=== PATIENT | female | born 1955 | race Caucasian/White ===

== ENCOUNTER 2023-08-17 20:31 | Inpatient (IN) | payer OTHER ==
[2023-08-17 21:54] VITALS: BMI 24.2
[2023-08-17] MEDS ORDERED: IBUPROFEN 400 MG TABLET (FP) PO PRN (22:18)
[2023-08-17] MEDS ORDERED: BISMUTH SUBSALICYLATE 524 MG/30 ML PO PRN (22:18)
[2023-08-17] MEDS ORDERED: LOPERAMIDE HCL 2 MG CAPSULE PO PRN (22:18)
[2023-08-17] MEDS ORDERED: NALOXONE HCL 0.4 MG/ML VIAL IM PRN (22:18)
[2023-08-17] MEDS ORDERED: MAGNESIUM HYDROX 2400MG/30ML ORAL SUSPENSION 30 ML CUP PO PRN (22:18)
[2023-08-17] MEDS ORDERED: BENZOCAINE/MENTHOL (CHLORASEPTIC ) LOZENGE MM PRN (22:18)
[2023-08-17] MEDS ORDERED: NALOXONE (NARCAN) HCL 4 MG/0.1 ML SPRAY NS PRN (22:18)
[2023-08-17] MEDS ORDERED: NICOTINE POLACRILEX 2 MG GUM BUC PRN (22:18)
[2023-08-17] MEDS ORDERED: MAG HYDROX/AL HYDROX/SIMETH 30 ML UNIT-DOSE CUP PO PRN (22:18)
[2023-08-17] MEDS ORDERED: guaiFENesin 600 MG TABLET.ER (FP) PO PRN (22:18)
[2023-08-17] MEDS ORDERED: POLYETHYLENE GLYCOL (HEALTHYLAX) 3350 17 GM PACKET PO PRN (22:18)
[2023-08-17] MEDS ORDERED: ALBUTEROL SO4 HFA INHALER IH PRN (23:46)
[2023-08-17] MEDS: amLODIPine BESYLATE 5 MG TABLET (FP) PO ONE (23:47)
[2023-08-17] MEDS: MELATONIN 5 MG TABLETS PO ONE (23:55)
[2023-08-17] MEDS: hydrOXYzine PAMOATE 25 MG CAPSULE (FP) PO PRN (23:56)
[2023-08-17] MEDS: diazePAM 5 MG TABLET PO ONE (23:56)
[2023-08-18] MEDS: ONDANSETRON *ODT* 4 MG TABLET SL PRN (04:19)
[2023-08-18] MEDS: IBUPROFEN 600 MG TABLET (FP) PO PRN (04:20)
[2023-08-18] MEDS: P-EPHED 60MG/TRIPROLIDI 2.5MG TABLET PO PRN (04:24)
[2023-08-18] MEDS: ACETAMINOPHEN 325 MG TABLET (FP) PO PRN (08:02)
[2023-08-18] MEDS: TRIMETHOBENZAMIDE HCL 200MG/2ML INJ IM ONE (08:45)
[2023-08-18] MEDS: metFORMIN HCL 500 MG TABLET (FP) PO SCH (08:45)
[2023-08-18] MEDS: methaDONE HCL 10 MG TABLET (FOR DETOX USE ONLY) PO ONE (09:03)
[2023-08-18] MEDS: BUPRENORPHINE/NALOXONE 0.5 MG/0.125 MG FILM SL ONE ×2 (09:03→22:15)
[2023-08-18] MEDS: cloNIDine HCL 0.1 MG TABLET PO SCH (09:05)
[2023-08-18] MEDS: PRENATAL VITAMINS W/ FOLIC ACID TABLET (FP) PO SCH (09:05)
[2023-08-18] MEDS: FUROSEMIDE 20 MG TABLET (FP) PO SCH (09:05)
[2023-08-18] MEDS: PANTOPRAZOLE 40 MG TABLET PO SCH (11:14)
[2023-08-18 11:17] LABS: POTASSIUM 4.2 mmol/L (3.5-5.1)
[2023-08-18 11:25] LABS: CALCIUM 9.5 mg/dL (8.5-10.1)
[2023-08-18 11:26] LABS: BLOOD UREA NITROGEN 11.6 mg/dL (7-18); HEMATOCRIT 43.2 % (32.4-45.2); HEMOGLOBIN 14.3 GM/dL (10.7-15.3); MCH 27.3 pg (25.7-33.7); MEAN CELL VOLUME 82.7 fl (80-96); MEAN PLT VOLUME 8.8 fl (7.5-11.1); PLATELET COUNT 198 10^3/uL (134-434); RBC 5.23 M/mm3 (3.60-5.2); RDW 17.7 % (11.6-15.6); WHITE BLOOD COUNT 4.5 K/mm3 (4.0-10.0)
[2023-08-18 11:29] LABS: BILIRUBIN,TOTAL 0.6 mg/dL (0.2-1); CREATININE 0.6 mg/dL (0.55-1.3); TOT PROT 7.6 g/dl (6.4-8.2)
[2023-08-18] MEDS: NICOTINE POLACRILEX 2 MG LOZENGE BC PRN (12:57)
[2023-08-18] MEDS ORDERED: QUEtiapine FUMARATE 50 MG TABLET PO SCH (22:00)
[2023-08-18] MEDS: MIRTAZAPINE 15 MG TABLET (FP) PO SCH (22:15)
[2023-08-18] MEDS: ATORVASTATIN CA 20 MG TABLET (FP) PO SCH (22:15)
[2023-08-18] MEDS: THIAMINE 100 MG TABLET PO SCH (22:15)
[2023-08-18] MEDS: MELATONIN 5 MG TABLETS PO SCH (22:15)
[2023-08-19] MEDS: BENZONATATE 200 MG CAPSULE PO PRN (03:19)
[2023-08-19] MEDS: NICOTINE POLACRILEX 2 MG GUM BC PRN (06:37)
[2023-08-19] MEDS: BUPRENORPHINE/NALOXONE 0.5 MG/0.125 MG FILM SL SCH (09:31)
[2023-08-19] MEDS: METHOCARBAMOL 500 MG TABLET PO PRN (14:41)
[2023-08-20] MEDS: BUPRENORPHINE/NALOXONE 2 MG/0.5 MG FILM PACKET SL SCH (09:51)
[2023-08-20] MEDS: methaDONE HCL 10 MG TABLET (FOR DETOX USE ONLY) PO ONE (09:53)
[2023-08-21] MEDS: BUPRENORPHINE/NALOXONE 4 MG/1 MG FILM PACKET SL SCH (09:17)
[2023-08-21] MEDS: GABAPENTIN 100 MG CAPSULE PO ONE (22:05)
[2023-08-21] MEDS: NAPROXEN 500 MG TABLET PO ONE (22:05)
[2023-08-22] MEDS: methaDONE HCL 10 MG TABLET (FOR DETOX USE ONLY) PO ONE (09:54)
[2023-08-22] MEDS: BUPRENORPHINE/NALOXONE 8 MG/2 MG FILM PACKET SL SCH (09:55)
[2023-08-22] MEDS: SENNOSIDES 8.8 MG/5 ML SYRUP PO SCH (22:05)
[2023-08-23] MEDS: DOCUSATE SODIUM 100 MG CAPSULE (FP) PO PRN (08:48)
[2023-08-23] MEDS: BUPRENORPHINE/NALOXONE 8 MG/2 MG FILM PACKET SL SCH (10:01)
[2023-08-23] MEDS: BISACODYL 5 MG TABLET.DR (FP) PO PRN (23:05)
[2023-08-24] MEDS ORDERED: MAGNESIUM CITRATE 300 ML BOTTLE PO ONE (09:27)
[2023-08-24 12:59] VITALS: BP 149/92; PULSE 88; RESP 16; TEMP 97.6
== END 2023-08-24 13:25 | disposition other institution (70) | DRG 897 ==
LOC: YASAS 20:31 → Y3N 22:23
PROVIDERS: ADMIT Allergy & Immunology; ATTEND Surgery
PROC: HZ2ZZZZ Detoxification Services for Substance Abuse Treatment (ICD-10-PCS; principal; 2023-08-17)
DX: F11.23 Opioid dependence with withdrawal (principal); F14.10 Cocaine abuse, uncomplicated; F17.210 Nicotine dependence, cigarettes, uncomplicated; I10 Essential (primary) hypertension; E11.9 Type 2 diabetes mellitus without complications; Z79.84 Long term (current) use of oral hypoglycemic drugs; M25.511 Pain in right shoulder; G89.29 Other chronic pain; Z86.59 Personal history of other mental and behavioral disorders
CPT/HCPCS: 36415; 80053; 80305; 82962; 85027; 86780; 87811; 93005; 93010; Q0162

== ENCOUNTER 2023-08-24 13:30 | Inpatient (IN) | payer OTHER ==
[2023-08-24] MEDS ORDERED: NALOXONE HCL 0.4 MG/ML VIAL IVPUSH PRN (15:41)
[2023-08-24] MEDS ORDERED: BENZOCAINE/MENTHOL (CHLORASEPTIC ) LOZENGE MM PRN (15:41)
[2023-08-24] MEDS ORDERED: LOPERAMIDE HCL 2 MG CAPSULE PO PRN (15:41)
[2023-08-24] MEDS ORDERED: MAG HYDROX/AL HYDROX/SIMETH 30 ML UNIT-DOSE CUP PO PRN (15:41)
[2023-08-24] MEDS ORDERED: ACETAMINOPHEN 325 MG TABLET (FP) PO PRN (15:41)
[2023-08-24] MEDS ORDERED: guaiFENesin 600 MG TABLET.ER (FP) PO PRN (15:41)
[2023-08-24] MEDS ORDERED: MAGNESIUM HYDROX 2400MG/30ML ORAL SUSPENSION 30 ML CUP PO PRN (15:41)
[2023-08-24] MEDS ORDERED: NALOXONE (NARCAN) HCL 4 MG/0.1 ML SPRAY NS PRN (15:41)
[2023-08-24] MEDS ORDERED: BENZONATATE 200 MG CAPSULE PO PRN (15:41)
[2023-08-24] MEDS ORDERED: POLYETHYLENE GLYCOL (HEALTHYLAX) 3350 17 GM PACKET PO PRN (15:41)
[2023-08-24] MEDS: hydrOXYzine PAMOATE 25 MG CAPSULE (FP) PO PRN (16:05)
[2023-08-24] MEDS: METHOCARBAMOL 500 MG TABLET PO PRN (16:05)
[2023-08-24] MEDS: IBUPROFEN 400 MG TABLET (FP) PO PRN (16:06)
[2023-08-24] MEDS: NICOTINE POLACRILEX 4 MG GUM BUC PRN (16:08)
[2023-08-24] MEDS: IBUPROFEN 600 MG TABLET (FP) PO PRN (17:46)
[2023-08-24] MEDS: NICOTINE POLACRILEX 4 MG LOZENGE BC PRN (17:48)
[2023-08-24] MEDS: MELATONIN 5 MG TABLETS PO SCH (21:53)
[2023-08-24] MEDS: THIAMINE 100 MG TABLET PO SCH (21:53)
[2023-08-24] MEDS: BUPRENORPHINE/NALOXONE 8 MG/2 MG FILM PACKET SL SCH (21:56)
[2023-08-24] MEDS: ATORVASTATIN CA 20 MG TABLET (FP) PO SCH (21:57)
[2023-08-24] MEDS: MIRTAZAPINE 30 MG TABLET PO SCH (21:57)
[2023-08-24] MEDS: SENNOSIDES/DOCUSATE COMBO (SENNA PLUS) TABLET (UD) PO SCH (22:06)
[2023-08-25] MEDS ORDERED: ALBUTEROL SO4 HFA INHALER IH PRN (09:53)
[2023-08-25] MEDS: PRENATAL VITAMINS W/ FOLIC ACID TABLET (FP) PO SCH (09:59)
[2023-08-25] MEDS: FUROSEMIDE 20 MG TABLET (FP) PO SCH (10:00)
[2023-08-25] MEDS: PANTOPRAZOLE 40 MG TABLET PO SCH (10:00)
[2023-08-25] MEDS: NICOTINE 14 MG/24 HOURS TOPICAL PATCH TD SCH (10:00)
[2023-08-25 12:53] LABS: HIV INTERPRETATION NEGATIVE (NEGATIVE)
[2023-08-25] MEDS ORDERED: MAGNESIUM CITRATE 300 ML BOTTLE PO PRN (14:22)
[2023-08-25] MEDS: BACLOFEN 10 MG TABLET (FP) PO SCH (15:37)
[2023-08-25] MEDS: GABAPENTIN 100 MG CAPSULE PO SCH (15:37)
[2023-08-25] MEDS: MAGNESIUM CITRATE 300 ML BOTTLE PO PRN (15:38)
[2023-08-25] MEDS: MIRTAZAPINE 15 MG TABLET (FP) PO SCH (21:56)
[2023-08-25] MEDS ORDERED: BACLOFEN 10 MG TABLET (FP) PO SCH (22:00)
[2023-08-26] MEDS ORDERED: BISACODYL 10 MG SUPP.RECT PR PRN (09:43)
[2023-08-26] MEDS: amLODIPine BESYLATE 5 MG TABLET (FP) PO SCH (10:04)
[2023-08-26] MEDS: LIDOCAINE 4% PATCH TP SCH (10:05)
[2023-08-26] MEDS: SODIUM PHOSPHATE/NA BIPHOS 133 ML ENEMA RC ONE (12:19)
[2023-08-26 13:41] LABS: HIV INTERPRETATION NEGATIVE (NEGATIVE)
[2023-08-26] MEDS: hydrOXYzine PAMOATE 25 MG CAPSULE (FP) PO ONE (16:54)
[2023-08-26] MEDS: MIRTAZAPINE 30 MG TABLET PO SCH (21:31)
[2023-08-26] MEDS: LIDOCAINE PATCH REMOVAL MC SCH (23:00)
[2023-08-27 07:13] VITALS: BP 110/73; PULSE 84; RESP 16; TEMP 97.9
== END 2023-08-27 11:35 | disposition left against medical advice (07) | DRG 894 ==
LOC: YASAS 13:30 → Y5N 13:31
PROVIDERS: ADMIT Allergy & Immunology; ATTEND Psychiatry & Neurology Pain Medicine
PROC: HZ42ZZZ Group Counseling for Substance Abuse Treatment, Cognitive-Behavioral (ICD-10-PCS; principal; 2023-08-24)
DX: F11.20 Opioid dependence, uncomplicated (principal); F19.282 Other psychoactive substance dependence with psychoactive substance-induced sleep disorder; F14.10 Cocaine abuse, uncomplicated; F17.210 Nicotine dependence, cigarettes, uncomplicated; F31.9 Bipolar disorder, unspecified; F43.10 Post-traumatic stress disorder, unspecified; F41.9 Anxiety disorder, unspecified; G62.9 Polyneuropathy, unspecified; I10 Essential (primary) hypertension; K59.00 Constipation, unspecified; R73.03 Prediabetes; Z86.19 Personal history of other infectious and parasitic diseases; F91.8 Other conduct disorders; Z91.199 Patient's noncompliance with other medical treatment and regimen due to unspecified reason
CPT/HCPCS: 36415; 82962; 83036; 86803; 87389; 87522; J0475

== ENCOUNTER 2024-02-01 19:43 | Inpatient (IN) | payer OTHER ==
[2024-02-01] MEDS ORDERED: diazePAM 5 MG TABLET PO PRN (23:02)
[2024-02-01] MEDS ORDERED: cloNIDine HCL 0.1 MG TABLET PO PRN (23:02)
[2024-02-01] MEDS ORDERED: methaDONE HCL 10 MG TABLET (FOR DETOX USE ONLY) PO PRN (23:02)
[2024-02-01] MEDS ORDERED: LOPERAMIDE HCL 2 MG CAPSULE PO PRN (23:11)
[2024-02-01] MEDS ORDERED: IBUPROFEN 400 MG TABLET (FP) PO PRN (23:11)
[2024-02-01] MEDS ORDERED: BISMUTH SUBSALICYLATE 524 MG/30 ML PO PRN (23:11)
[2024-02-01] MEDS ORDERED: guaiFENesin 600 MG TABLET.ER (FP) PO PRN (23:11)
[2024-02-01] MEDS ORDERED: NICOTINE POLACRILEX 2 MG LOZENGE BC PRN (23:11)
[2024-02-01] MEDS ORDERED: NALOXONE (NARCAN) HCL 4 MG/0.1 ML SPRAY NS PRN (23:11)
[2024-02-01] MEDS ORDERED: ONDANSETRON *ODT* 4 MG TABLET SL PRN (23:11)
[2024-02-01] MEDS ORDERED: P-EPHED 60MG/TRIPROLIDI 2.5MG TABLET PO PRN (23:11)
[2024-02-01] MEDS ORDERED: BENZOCAINE/MENTHOL (CHLORASEPTIC ) LOZENGE MM PRN (23:11)
[2024-02-01] MEDS ORDERED: MAG HYDROX/AL HYDROX/SIMETH 30 ML UNIT-DOSE CUP PO PRN (23:11)
[2024-02-01] MEDS ORDERED: BENZONATATE 200 MG CAPSULE PO PRN (23:11)
[2024-02-02] MEDS: methaDONE HCL 10 MG TABLET (FOR DETOX USE ONLY) PO ONE (00:20)
[2024-02-02] MEDS ORDERED: methaDONE HCL 10 MG TABLET (FOR DETOX USE ONLY) ONE (01:18)
[2024-02-02 02:37] VITALS: BMI 22.8
[2024-02-02] MEDS: ACETAMINOPHEN 325 MG TABLET (FP) PO PRN (03:51)
[2024-02-02] MEDS: diazePAM 5 MG TABLET PO PRN (07:13)
[2024-02-02] MEDS: NICOTINE POLACRILEX 2 MG GUM BUC PRN (07:56)
[2024-02-02] MEDS: PRENATAL VITAMINS W/ FOLIC ACID TABLET (FP) PO SCH (09:59)
[2024-02-02] MEDS: BUPRENORPHINE/NALOXONE 0.5 MG/0.125 MG FILM SL SCH (10:01)
[2024-02-02] MEDS: NICOTINE 7 MG/24 HOURS TOPICAL PATCH TD SCH (10:04)
[2024-02-02] MEDS: cloNIDine HCL 0.1 MG TABLET PO SCH (10:07)
[2024-02-02 11:02] LABS: HEMATOCRIT 45.9 % (32.4-45.2); HEMOGLOBIN 14.9 GM/dL (10.7-15.3); MCH 28.8 pg (25.7-33.7); MCHC 32.3 g/dl (32.0-36.0); MEAN CELL VOLUME 88.9 fl (80-96); MEAN PLT VOLUME 8.6 fl (7.5-11.1); PLATELET COUNT 239 10^3/uL (134-434); RBC 5.16 M/mm3 (3.60-5.2); RDW 14.1 % (11.6-15.6); WHITE BLOOD COUNT 9.4 K/mm3 (4.0-10.0)
[2024-02-02 11:06] LABS: POTASSIUM 4.2 mmol/L (3.5-5.1)
[2024-02-02 11:08] LABS: ALBUMIN 3.9 g/dl (3.4-5.0); BLOOD UREA NITROGEN 15.6 mg/dL (7-18); CALCIUM 9.2 mg/dL (8.5-10.1)
[2024-02-02 11:12] LABS: CREATININE 0.6 mg/dL (0.55-1.3)
[2024-02-02 11:13] LABS: BILIRUBIN,TOTAL 0.6 mg/dL (0.2-1); TOT PROT 7.3 g/dl (6.4-8.2)
[2024-02-02] MEDS: THIAMINE 100 MG TABLET PO SCH (22:08)
[2024-02-02] MEDS: MIRTAZAPINE 15 MG TABLET (FP) PO SCH (22:08)
[2024-02-02] MEDS: QUEtiapine FUMARATE 200 MG TABLET PO SCH (22:09)
[2024-02-02] MEDS: ATORVASTATIN CA 20 MG TABLET (FP) PO SCH (22:09)
[2024-02-02] MEDS: MELATONIN 5 MG TABLETS PO SCH (22:10)
[2024-02-03] MEDS: amLODIPine BESYLATE 5 MG TABLET (FP) PO SCH (09:32)
[2024-02-03] MEDS: methaDONE HCL 10 MG TABLET (FOR DETOX USE ONLY) PO ONE (09:33)
[2024-02-03] MEDS: BUPRENORPHINE/NALOXONE 2 MG/0.5 MG FILM PACKET SL SCH (09:40)
[2024-02-03] MEDS ORDERED: methaDONE HCL 10 MG TABLET (FOR DETOX USE ONLY) PO ONE (10:00)
[2024-02-03] MEDS: BISACODYL 5 MG TABLET.DR (FP) PO ONE (11:36)
[2024-02-03] MEDS: METHOCARBAMOL 500 MG TABLET PO SCH (13:14)
[2024-02-03] MEDS: IBUPROFEN 600 MG TABLET (FP) PO PRN (17:33)
[2024-02-03] MEDS: MAGNESIUM HYDROX 2400MG/30ML ORAL SUSPENSION 30 ML CUP PO PRN (22:45)
[2024-02-04] MEDS: POLYETHYLENE GLYCOL (HEALTHYLAX) 3350 17 GM PACKET PO PRN (07:29)
[2024-02-04] MEDS: BUPRENORPHINE/NALOXONE 4 MG/1 MG FILM PACKET SL SCH (10:07)
[2024-02-04] MEDS: MAGNESIUM CITRATE 300 ML BOTTLE PO ONE (11:01)
[2024-02-05] MEDS ORDERED: methaDONE HCL 10 MG TABLET (FOR DETOX USE ONLY) PO ONE (10:00)
[2024-02-05] MEDS: cloNIDine HCL 0.1 MG TABLET PO PRN (10:07)
[2024-02-05] MEDS: BUPRENORPHINE/NALOXONE 8 MG/2 MG FILM PACKET SL SCH (10:07)
[2024-02-05] MEDS: methaDONE HCL 10 MG TABLET (FOR DETOX USE ONLY) PO ONE (10:08)
[2024-02-05] MEDS: NICOTINE 14 MG/24 HOURS TOPICAL PATCH TD SCH (10:09)
[2024-02-05 14:03] LABS: BASO % 0.5 % (0-2.0); EOS % 2.8 % (0-4.5); HEMATOCRIT 41.8 % (32.4-45.2); HEMOGLOBIN 13.5 GM/dL (10.7-15.3); LYMPH % 28.5 % (8-40); MCH 28.9 pg (25.7-33.7); MCHC 32.3 g/dl (32.0-36.0); MEAN CELL VOLUME 89.4 fl (80-96); MONO % 8.9 % (3.8-10.2); NEUT % 59.3 % (42.8-82.8); PLATELET COUNT 196 10^3/uL (134-434); RBC 4.68 M/mm3 (3.60-5.2); RDW 13.9 % (11.6-15.6); WHITE BLOOD COUNT 5.8 K/mm3 (4.0-10.0)
[2024-02-05 14:20] LABS: POTASSIUM 4.2 mmol/L (3.5-5.1)
[2024-02-05 14:23] LABS: ALBUMIN 3.4 g/dl (3.4-5.0); BLOOD UREA NITROGEN 15.2 mg/dL (7-18); CALCIUM 9.1 mg/dL (8.5-10.1)
[2024-02-05 14:26] LABS: CREATININE 0.7 mg/dL (0.55-1.3)
[2024-02-05 14:28] LABS: BILIRUBIN,TOTAL 0.6 mg/dL (0.2-1); TOT PROT 6.5 g/dl (6.4-8.2)
[2024-02-06] MEDS: NALOXONE (NYS OPIOID OVERDOSE PROGRAM) 4 MG/0.1 ML SPRAY NS SCH (08:55)
[2024-02-06] MEDS: BUPRENORPHINE/NALOXONE 8 MG/2 MG FILM PACKET SL SCH (09:57)
[2024-02-07 06:24] VITALS: RESP 16
[2024-02-07 08:59] VITALS: BP 118/81; PULSE 68; TEMP 97.5
[2024-02-07] MEDS: cloNIDine HCL 0.1 MG TABLET PO ONE (09:25)
== END 2024-02-07 11:00 | disposition home or self-care (01) | DRG 897 ==
LOC: YASAS 19:43 → Y3N 02-02 01:20
PROVIDERS: ADMIT Allergy & Immunology; ATTEND Surgery
PROC: HZ2ZZZZ Detoxification Services for Substance Abuse Treatment (ICD-10-PCS; principal; 2024-02-02)
DX: F11.23 Opioid dependence with withdrawal (principal); F14.10 Cocaine abuse, uncomplicated; F17.210 Nicotine dependence, cigarettes, uncomplicated; F31.9 Bipolar disorder, unspecified; F43.10 Post-traumatic stress disorder, unspecified; G47.00 Insomnia, unspecified; I10 Essential (primary) hypertension; E78.5 Hyperlipidemia, unspecified; R73.03 Prediabetes; Z86.19 Personal history of other infectious and parasitic diseases
CPT/HCPCS: 36415; 80053; 82962; 85025; 85027; 86780